=== PATIENT | male | born 1935 | race Caucasian/White ===

== ENCOUNTER → 2016-10-28 | Outpatient (CLI) | payer MEDICARE, OTHER | END | disposition home or self-care (01) | LOC: PCVCIMAG 07:47 | PROVIDERS: ATTEND Internal Medicine Cardiovascular Disease | DX: I65.23 Occlusion and stenosis of bilateral carotid arteries (principal); I71.4 Abdominal aortic aneurysm, without rupture; I73.9 Peripheral vascular disease, unspecified; E78.00 Pure hypercholesterolemia, unspecified; I25.10 Atherosclerotic heart disease of native coronary artery without angina pectoris; I10 Essential (primary) hypertension | CPT/HCPCS: 93325; 93351; 93880; 93925; 93978 ==

== ENCOUNTER → 2017-07-12 | Outpatient (CLI) | payer MEDICARE, OTHER ==
--- NOTE | 2017-07-12 09:43 | PCVCIMAG ---
APPROVED REPORT Patient Location: Out-Patient Indications Bruit Stenosis Doppler Spectral Velocity Analysis PSV / EDVPSV / EDV ECA (R) 126 / 11 cm/sECA (L) 223 / 26 cm/s dICA (R) 52 / 14 cm/sdICA (L) 94 / 21 cm/s Christiano (R) 97 / 24 cm/smICA (L) 181 / 45 cm/s pICA (R) 63 / 14 cm/spICA (L) 252 / 48 cm/s Bulb (R) 66 / 13 cm/sBulb (L) 130 / 18 cm/s dCCA (R) 81 / 16 cm/sdCCA (L) 84 / 19 cm/s mCCA (R) 73 / 14 cm/smCCA (L) 93 / 17 cm/s Vert (R) 45 / 8 cm/sVert (L) 47 / 11 cm/s ICA/CCA 1.20 ICA/CCA 3.00 Findings The right carotid bulb has moderate calcified plaque. The right proximal internal carotid artery shows <40% stenosis. The right common carotid artery shows no significant stenosis. The right external carotid artery shows <50% stenosis. The left carotid bulb has moderately severe calcified plaque. The left proximal internal carotid artery shows 70-90% stenosis. The left common carotid artery shows <40% stenosis. The left external carotid artery shows >90% stenosis. Conclusion 1. Right internal carotid artery stenosis (<40%) 2. Left internal carotid artery stensosis (70-90%) 3. Left common carotid artery stenosis (<40%) 4. Antegrade vertebral flow
== END | disposition home or self-care (01) ==
LOC: PCVCIMAG 08:51
PROVIDERS: ATTEND Internal Medicine Cardiovascular Disease
DX: I65.23 Occlusion and stenosis of bilateral carotid arteries (principal); I25.10 Atherosclerotic heart disease of native coronary artery without angina pectoris
CPT/HCPCS: 80061; 93005; 93880; G0463

== ENCOUNTER → 2018-02-23 | Outpatient (CLI) | payer MEDICARE, OTHER | END | disposition home or self-care (01) | LOC: PCVCIMAG 09:18 | DX: I65.23 Occlusion and stenosis of bilateral carotid arteries (principal); I25.10 Atherosclerotic heart disease of native coronary artery without angina pectoris; I10 Essential (primary) hypertension; E78.5 Hyperlipidemia, unspecified | CPT/HCPCS: 93325; 93351; 93880 ==

== ENCOUNTER → 2018-11-25 | Outpatient (CLI) | payer MEDICARE, OTHER ==
--- NOTE | 2018-11-25 11:08 | PCVCIMAG ---
APPROVED REPORT Indications Stenosis Risk Factors Hyperlipidemia Doppler Spectral Velocity Analysis PSV / EDVPSV / EDV ECA (R) 104 / 9 cm/sECA (L) 206 / 14 cm/s dICA (R) 88 / 19 cm/sdICA (L) 73 / 24 cm/s Christiano (R) 91 / 18 cm/smICA (L) 112 / 26 cm/s pICA (R) 52 / 10 cm/spICA (L) 252 / 32 cm/s Bulb (R) 62 / 9 cm/sBulb (L) 198 / 16 cm/s dCCA (R) 62 / 12 cm/sdCCA (L) 82 / 13 cm/s mCCA (R) 86 / 12 cm/smCCA (L) 82 / 13 cm/s Vert (R) 46 / 6 cm/sVert (L) 42 / 6 cm/s ICA/CCA 3.07 ICA/CCA 1.06 Basic Measurements Blood Pressure: Pulses: Right Left RightLeft Brachial(Sitting) 164/01hwHg049/90mmHgTemporal Real Time B-Mode Imaging Vert. (R)AntegradeVert. (L)Antegrade Findings The right carotid bulb has moderate plaque. The right proximal internal carotid artery shows <40% stenosis. The right common carotid artery shows no significant stenosis. The right external carotid artery shows no significant stenosis. The left carotid bulb has severe plaque. The left proximal internal carotid artery shows 70-80% stenosis. The left common carotid artery shows <40% stenosis. The left external carotid artery shows >50% stenosis. Conclusion 1. Right internal carotid artery stenosis (<40%) 2. Left internal carotid artery stenosis (70-90%) 3. Antegrade vertebral flow Similar to July 2017
== END | disposition home or self-care (01) ==
LOC: PCVCIMAG 09:13
PROVIDERS: ATTEND Internal Medicine Cardiovascular Disease
DX: I65.23 Occlusion and stenosis of bilateral carotid arteries (principal); I25.10 Atherosclerotic heart disease of native coronary artery without angina pectoris; I10 Essential (primary) hypertension; E78.00 Pure hypercholesterolemia, unspecified; F17.210 Nicotine dependence, cigarettes, uncomplicated; Z79.82 Long term (current) use of aspirin
CPT/HCPCS: 36415; 80061; 93005; 93880; G0463